=== PATIENT | male | born 1990 | race Caucasian/White ===

== ENCOUNTER 2020-05-01 10:58 | Emergency (ER) | payer MEDICAID ==
[~2020-05-01] VITALS: Ht 182.9 cm; Wt 62.7 kg
[2020-05-01 11:18] VITALS: BP 131/82
[2020-05-01] MEDS ORDERED: CIPR-20 PO (11:36)
[2020-05-01] MEDS ORDERED: CIPR10DR LEFT EAR (11:36)
[2020-05-01] MEDS ORDERED: ibuprofen tablet 400 MG TABLET PO ONE (11:50)
== END 2020-05-01 11:59 | disposition home or self-care (01) ==
LOC: ER 10:59
DX: H60.92 Unspecified otitis externa, left ear (principal); Z79.899 Other long term (current) drug therapy
CPT/HCPCS: 99283

== ENCOUNTER 2020-05-02 22:56 | Emergency (ER) | payer MEDICAID ==
[~2020-05-02] VITALS: Ht 182.9 cm; Wt 62.7 kg
[~2020-05-02 22:56] MED LIST: CIPR-20 PO; CIPR10DR LEFT EAR
[2020-05-02] MEDS ORDERED: HYDROcodone/acetaminophen 5mg/325mg tablet PO ONE (23:35)
[2020-05-02] MEDS ORDERED: ondansetron 4mg rapidly disintigrating tab PO ONE (23:35)
[2020-05-02] MEDS ORDERED: Cipro HC otic suspension 10ML bottle LEFT EAR SCH (23:39)
[2020-05-02 23:56] VITALS: BP 126/72
== END 2020-05-02 23:59 | disposition home or self-care (01) ==
LOC: ER 22:56
DX: H60.92 Unspecified otitis externa, left ear (principal); Z79.899 Other long term (current) drug therapy
CPT/HCPCS: 99283; 99284